=== PATIENT | female | born 1980 | race Caucasian/White ===

== ENCOUNTER 2023-09-30 04:36 | Emergency (ER) | payer BC ==
[2023-09-30 05:00] VITALS: O2SAT 100
--- NOTE | 2023-09-30 05:08 | ED Physician Documentation ---
PD HPI ABD PAIN - Stated complaint Stated Complaint: ABD PAIN - Chief complaint Chief Complaint: Abd Pain - History obtained from History obtained from: Patient - Additional information Additional information: HPI from patient. Patient complains of of abdominal pain, episodic since yesterday afternoon. She has had nausea but no vomiting. The episodes of pain have become more frequent, persistent, and the pain more intense with each subsequent episode. The pain is diffuse but limited to the anterior abdomen. Denies history of similar symptoms. Review of Systems Cardiac: reports: Reviewed and negative Respiratory: reports: Reviewed and negative GI: reports: Abdominal Pain, Nausea. denies: Vomiting, Constipation, Diarrhea : reports: Frequency. denies: Dysuria PD PAST MEDICAL HISTORY - Past Medical History Past Medical History: Yes Psych: ADD/ADHD Derm: Other Other Past Medical History: Acne - Past Surgical History Past Surgical History: Yes General: Other - Present Medications Home Medications: Ambulatory Orders Medication Instructions Recorded Confirmed Lisdexamfetamine Dimesylate 50 mg PO DAILY 09/30/23 09/30/23 [Vyvanse] Spironolactone [Aldactone] 50 mg PO DAILY 09/30/23 09/30/23 - Allergies Allergies/Adverse Reactions: Allergies Allergy/AdvReac Type Severity Reaction Status Date / Time No Known Drug Allergies Allergy Verified 09/30/23 04:55 - Social History Does the pt smoke?: No Smoking Status: Never smoker Does the pt drink ETOH?: Yes ETOH Use: Wine, Liquor Does the pt have substance abuse?: No - Immunizations Immunizations are current?: No Immunizations: TDAP >10years/unknown - POLST Patient has POLST: No PD ED PE NORMAL - Vitals Vital signs reviewed: Yes - General General: Alert and oriented X 3, Well developed/nourished, Other (appears uncomfortable at times during H+P) - HEENT HEENT: Moist mucous membranes - Neck Neck: Supple, no meningeal sign - Cardiac Cardiac: RRR, No murmur - Respiratory Respiratory: No respiratory distress, Clear bilaterally - Abdomen Abdomen: Soft, Non tender, Non distended - Back Back: No CVA TTP - Derm Derm: Normal color, Warm and dry Results - Vitals Vitals: Vital Signs - 24 hr 09/30/23 09/30/23 04:47 07:30 Temperature 36.7 C Heart Rate 75 70 Respiratory 18 18 Rate Blood Pressure 129/86 H 100/62 O2 Saturation 100 100 Oxygen O2 Source Room air - Labs Labs: Laboratory Tests 09/30/23 09/30/23 09/30/23 05:10 05:10 07:09 WBC 11.7 H RBC 5.40 Hgb 14.8 Hct 46.1 MCV 85.4 MCH 27.4 MCHC 32.1 RDW 13.0 Plt Count 280 MPV 10.5 Neut # (Auto) 8.7 H Lymph # (Auto) 2.0 [place] # (Auto) 0.8 Eos # (Auto) 0.0 Baso # (Auto) 0.1 Absolute Nucleated RBC 0.00 Nucleated RBC % 0.0 Sodium 136 Potassium 4.0 Chloride 100 L Carbon Dioxide 27 Anion Gap 9.0 BUN 24 H Creatinine 1.1 Estimated GFR (MDRD) 55 L Glucose 96 Calcium 11.0 H Total Bilirubin 0.5 AST 26 ALT 22 Alkaline Phosphatase 50 Total Protein 8.1 Albumin 4.8 Globulin 3.3 Albumin/Globulin Ratio 1.5 Lipase 73 Urine Color Urine Clarity Urine pH Ur Specific [place] Urine Protein Urine Glucose (UA) Urine Ketones Urine Occult Blood Urine Nitrite Urine Bilirubin Urine Urobilinogen Ur Leukocyte Esterase Urine RBC Urine WBC Ur Squamous Epith Cells Urine Bacteria Ur Microscopic Review Urine Culture Comments Urine HCG, Qual NEGATIVE 09/30/23 07:13 WBC RBC Hgb Hct MCV MCH MCHC RDW Plt Count MPV Neut # (Auto) Lymph # (Auto) [place] # (Auto) Eos # (Auto) Baso # (Auto) Absolute Nucleated RBC Nucleated RBC % Sodium Potassium Chloride Carbon Dioxide Anion Gap BUN Creatinine Estimated GFR (MDRD) Glucose Calcium Total Bilirubin AST ALT Alkaline Phosphatase Total Protein Albumin Globulin Albumin/Globulin Ratio Lipase Urine Color YELLOW Urine Clarity CLEAR Urine pH 5.5 Ur Specific [place] >=1.030 H Urine Protein NEGATIVE Urine Glucose (UA) NEGATIVE Urine Ketones 15 H Urine Occult Blood LARGE H Urine Nitrite NEGATIVE Urine Bilirubin NEGATIVE Urine Urobilinogen 0.2 (NORMAL) Ur Leukocyte Esterase NEGATIVE Urine RBC 11-25 H Urine WBC 0-3 Ur Squamous Epith Cells FEW Squamous Urine Bacteria Few Ur Microscopic Review INDICATED Urine Culture Comments NOT INDICATED Urine HCG, Qual PD Medical Decision Making - ED course Complexity details: reviewed results, re-evaluated patient, considered differential, d/w patient ED course: Mild leukocytosis (WBC 11.7) otherwise unremarkable CBC. Elevated BUN (24) with normal creatinine; would consider some degree of dehydration given that she is participating in a strenuous 2-day (running) race. Urinalysis is pending at the end of my shift and thus the care of this patient is turned over to the oncoming ED physician (Dr. Pinzon). On my initial H&P, I discussed with the patient options for analgesia. Initially, she says she does not want anything narcotic and thus we discussed Toradol as an option. Patient says she took 400 mg of ibuprofen approximately 2 hours prior to arrival. After settling on Toradol as the analgesic that would be ordered, a few minutes later the patient relented and said she would prefer stronger medication. Thus, I canceled the order for Toradol and instead ordered 4 mg IV morphine. I also ordered 1 L normal saline IV Departure - Departure Forms: PCP List
[2023-09-30] MEDS ORDERED: MORPHINE 2 MG/ML CARPUJECT ONE (05:47)
[2023-09-30] MEDS: SODIUM CHLORIDE 0.9% 1,000 ML IV STA (05:48)
[2023-09-30] MEDS: MORPHINE 2 MG/ML CARPUJECT IVP STA (05:48)
[2023-09-30 05:59] LABS: BASOPHILS # (AUTO) 0.1 10^3/uL (0.0-0.1); BASOPHILS % (AUTO) 0.4 %; EOSINOPHILS % (AUTO) 0.3 %; HCT - HEMATOCRIT 46.1 % (37.0-47.0); HGB - HEMOGLOBIN 14.8 g/dL (12.0-16.0); LYMPHOCYTES % (AUTO) 17.2 %; MEAN CORPUSCULAR HEMOGLOBIN 27.4 pg (27.0-31.0); MEAN CORPUSCULAR HGB CONC 32.1 g/dL (32.0-36.0); MEAN CORPUSCULAR VOLUME 85.4 fL (81.0-99.0); MEAN PLATELET VOLUME 10.5 fL (7.9-10.8); MONOCYTES # (AUTO) 0.8 10^3/uL (0.0-1.0); MONOCYTES % (AUTO) 7.1 %; NEUTROPHILS # (AUTO) 8.7 10^3/uL (1.5-6.6); NEUTROPHILS % (AUTO) 74.7 %; PLT - PLATELET COUNT 280 10^3/uL (130-450); WHITE BLOOD COUNT 11.7 x10^3/uL (4.8-10.8)
[2023-09-30] MEDS: KETOROLAC 30 MG/ML VIAL IVP STA (06:10)
[2023-09-30 06:17] LABS: ALBUMIN 4.8 g/dL (3.2-5.5); ALBUMIN/GLOBULIN RATIO 1.5 (1.0-2.2); BILIRUBIN,TOTAL 0.5 mg/dL (0.2-1.0); CREATININE 1.1 mg/dL (0.6-1.3); TOTAL PROTEIN 8.1 g/dL (6.4-8.9)
[2023-09-30 07:25] LABS: BILIRUBIN,URINE NEGATIVE (NEGATIVE); GLUCOSE, URINE (UA) NEGATIVE (NEGATIVE); KETONES,URINE (UA) 15 mg/dL (NEGATIVE); LEUKOCYTE ESTERASE, URINE NEGATIVE (NEGATIVE); NITRITE,URINE NEGATIVE (NEGATIVE); OCCULT BLOOD,URINE LARGE (NEGATIVE); PH,URINE 5.5 PH (5.0-7.5); PROTEIN,URINE NEGATIVE (NEGATIVE); UROBILINOGEN,URINE 0.2 (NORMAL) E.U./dL (NORMAL)
[2023-09-30 07:36] LABS: CLARITY,URINE CLEAR (CLEAR)
[2023-09-30 07:37] LABS: HCG UR QUAL NEGATIVE
[2023-09-30 07:37] LABS: BACTERIA,URINE Few /HPF (None Seen); SQUAMOUS EPITHELIAL CELL,UR FEW Squamous (<= Few); WBC,URINE 0-3 /HPF (0-5)
[2023-09-30] MEDS ORDERED: iohexoL-300 100 ML VIAL ONE (08:22)
[2023-09-30] MEDS: DROPERIDOL 5 MG/2 ML VIAL IVP STA (08:23)
[2023-09-30] MEDS: HYDROmorphone 0.5 MG/0.5 ML SYRINGE IVP STA (08:24)
--- NOTE | 2023-09-30 09:32 | CT Report ---
PROCEDURE: Abdomen/Pelvis W INDICATIONS: lower abd pain and vomiting CONTRAST: 100ml omni 300 TECHNIQUE: After the administration of intravenous contrast, a CT scan of the abdomen and pelvis was performed. Images were recorded and evaluated at appropriate window settings. Reformats: coronal and sagittal. F or radiation dose reduction, the following was used: automated exposure control, adjustment of mA and /or kV according to patient size. COMPARISON: None. FINDINGS: Image quality: Diagnostic. Lower chest: Dependent atelectasis in posterior aspect of bilateral lung bases are seen. Heart size i s normal, no pericardial effusion.. Liver: No solid mass. Gallbladder: No radiopaque stones or wall thickening. Biliary tree: No intrahepatic or extrahepatic dilation, accounting for age. Spleen: No splenomegaly. Pancreas: No pancreatic ductal dilation. Adrenals: No adrenal nodule. Kidneys and ureters: There is marked prominence of left renal collecting system and left ureter exten ding to the level of left UVJ. There is a 9 x 7 mm stone at the left UVJ and measures 1539 Hounsfield unit in density. No right-sided renal stones or hydronephrosis. Stomach, bowel and peritoneum: There is no bowel obstruction. No abnormal bowel wall thickening or me senteric fat stranding. Fecal stasis in the colon is seen. No abscess collection. No free fluid of fr ee air. Lymph nodes: No central or retroperitoneal adenopathy. Vessels: No infrarenal aortic aneurysm. Patent portal vein. PELVIS Reproductive organs: There is suggestion of a right ovarian cyst measures 2.1 x 2.3 cm in size.. Bladder: No abnormal wall thickening, accounting for underdistention. Pelvic lymph nodes: No pelvic adenopathy by size criteria. Bones: No aggressive osseous abnormality. Other: No significant ventral or inguinal hernia. IMPRESSION: 1. 9 x 7 mm left UVJ stone with moderate left-sided hydronephrosis and hydroureter. No right-sided re nal stones or hydronephrosis. 2. Mild constipation. No bowel obstruction or abnormal bowel wall thickening. No free fluid of free a ir. 3. Suggestion of right ovarian cyst as above. Reviewed by: Toño Knox MD on 09/30/2023 9:31 AM PDT Approved by: Toño Knox MD on 09/30/2023 9:31 AM PDT Station ID: [id number]
[2023-09-30] MEDS: HYDROmorphone 1 MG/ML CARPUJECT IVP STA ×2 (10:01→11:24)
[2023-09-30] MEDS: LIDOCAINE-MPF 2% 5 ML in SODIUM CHLORIDE 0.9% 50 ML IV STA (10:38)
[2023-09-30] MEDS: TAMSULOSIN 0.4 MG CAPSULE PO STA (11:24)
[2023-09-30] MEDS: DEXAMETHASONE 10 MG/ML VIAL IVP STA (11:25)
--- NOTE | 2023-09-30 12:32 | ED Physician Documentation ---
ED Addendum - Addendum Addendum: 09/30/23 12:28 The patient was received at change of shift still having some nausea and some lower left abdominal pain. The pain seemed to increase actually. Previously she had been wary of narcotics and had gotten 4 mg of morphine. However she was asking for more pain medicine at this time as well as antiemetics. She was given Dilaudid IV as well as Inapsine as the Zofran had not seem to be effective. This did provide some improvement in her pain. We discussed CT scan since her pain was increased and it was seeming less like just stomach irritation from hydration of dehydration or running. She was in agreement. CT scan was done and showed a fairly large 9 mm stone at the distal left ureter almost to the bladder. She was given IV lidocaine for renal stone protocol. Subsequent recheck is quite improved pain with just a mild amount at this time and no nausea. She is drinking some fluids. She is here for [place] and they are planning on leaving later this evening to [place] to stay at a hotel and flying back to [place] tomorrow. This would not give much time for follow-up here of course. I can write prescription for pain medicine and antiemetics and anti-inflammatories as well as Flomax. Since they are still here for part of the afternoon with their group, I just sent it to a local pharmacy. She will have to see how her pain is doing this afternoon and into tomorrow to decide on her level of comfort to be on an extended flight with the pain. It would be wonderful if she seemed to pass the stone before that. Since [place] will [place] off [place] later afternoon, if she does need subsequent revisit to an ER there have to find a more local 1 by there. Disposition: The patient discharged home in stable condition. Diagnoses: Abrupt abdominal pain nausea and vomiting 2. Left distal ureteral stone
[2023-09-30 12:55] VITALS: BP 112/76
[2023-09-30] MEDS: iohexoL-300 100 ML VIAL IVP ONE (17:50)
== END 2023-09-30 12:51 | disposition home or self-care (01) ==
LOC: ED 04:36
DX: N13.2 Hydronephrosis with renal and ureteral calculous obstruction (principal)
CPT/HCPCS: 36415; 74177; 80053; 81001; 81025; 83690; 85025; 96361; 96374; 96375; 96376; 99284; 99285; A9270; J1170; J7040; Q9967; 81003; 87086